=== PATIENT | male | born 1980 | race African-American/Black ===

== ENCOUNTER 2019-11-04 21:59 | Emergency (ER) | payer OTHER ==
[~2019-11-04] VITALS: Ht 188 cm; Wt 93.0 kg
[2019-11-04 22:11] VITALS: Ht 188 cm; Wt 93.0 kg
[2019-11-04 23:37] VITALS: BP 120/85
== END 2019-11-04 23:37 | disposition home or self-care (01) ==
LOC: ED 21:59
DX: M25.561 Pain in right knee (principal); M54.5 Low back pain; V49.9XXA Car occupant (driver) (passenger) injured in unspecified traffic accident, initial encounter; Y93.I9 Activity, other involving external motion; Y92.413 State road as the place of occurrence of the external cause; Y99.8 Other external cause status
CPT/HCPCS: J1885